=== PATIENT | female | born 1995 | race Caucasian/White ===

== ENCOUNTER 2019-05-13 01:26 | Inpatient (IN) ==
[2019-05-13] MEDS ORDERED: OXYTOCIN 30 UNITS/500 ML BAG IV PRN ×2 (02:59→03:02)
[2019-05-13] MEDS: LACTATED RINGER'S 1,000 ML IV PRN ×5 (03:05→23:10)
--- NOTE | 2019-05-13 03:09 | History & Physical Report ---
Date of Service May 13, 2019 Assessment & Plan (1) Spontaneous rupture of amniotic membranes: 23 yo at 39.2 wks, with SRPOM at term, meconium stained VSS Afebrile FHR reassuring GBS negative Discussed augmentation with pitocin with decreased risk of IAI Agrees Plan: admit, observe, monitor, augmentation with with Pitocin History of Present Illness Chief Complaint: Leaking Primary Care Provider: Jose Levy MD Patient is a 23 yo at 39.2 wks who had gush of fluid leaking at 0050 am, it has been coming and yellow No VB She has been having irregular ctxs for the last 2 days but got more closer and painful since 0130 am +FM's No Fever/ chills/ N&V/ MCGHEE Her has been complicaed by 1) Obesity 2) Smoker 3) LSGIL pap 4) Anxiety Allergies Allergy/AdvReac Type Severity Reaction Status Date / Time Penicillins Allergy Mild Rash Verified 05/13/19 02:10 Home Medications Home Medications Medication Instructions Recorded Confirmed Type vit-iron fum-folic ac 1 tab PO DAILY 05/13/19 05/13/19 History [ Vitamin] Patient History Social History Preferred Language: Kenyan Communication Ability: Effective Field Service Representative Required: No Beliefs That Will Affect Care: None marital status: Single Current Living Situation: Significant Other Other Information That Helps Us Care for You: No Feels Safe at Home: Yes Safety Concerns: Feels Safe At This Time Smoking Status: Current every day smoker Tobacco Type: cigarettes ; Cigarettes Per Day: 3-4 ; Do You Dip or Chew Tobacco: No ; Second Hand Exposure: Yes ; Tobacco Cessation Education Requested by Patient: No Hx Alcohol Use: No Hx Substance Use: No OB History SAB in 2018 [employer] History No h/o STD's, no HSV Review of Systems All systems reviewed & are unremarkable except as noted in HPI & below as per Subjective / HPI Physical Exam Constitutional: WD/WN, vitals as above well developed, well nourished and + in distress (Mild, anxious) Genitourinary: Meconium stained fluid on perineum, Nitrazine+ Cx: 1-2 cm/ 60%/ -2, vertex Results & Data Vital Signs (Past 12 Hours) Vital Signs Temp Pulse Resp BP 05/13/19 02:37 81 137/77 05/13/19 02:11 36.8 C 81 20 145/65 H 05/13/19 01:56 81 145/65 H 05/13/19 01:42 87 162/77 H 05/13/19 01:38 90 164/82 H Code Status & VTE Plan VTE Prophylaxis Plan VTE Prophylaxis will be ordered: Yes Monitoring External Monitor Categ I Tocodynamometer [place]: irregular ctxs
[2019-05-13 03:29] LABS: Hematocrit (blood only) 35.4 % (37-47); Hemoglobin 12.3 g/dL (12.0-16.0); Mean Corpuscular Volume 84.3 fL (80-100); Platelet Count 173 K/uL (130-400); RDW Coefficient of Variation 13.5 % (11.5-14.5); RDW Standard Deviation 40.8 fL (36.4-46.3); White Blood Count 9.15 K/uL (4.8-10.8)
[2019-05-13 03:30] LABS: Mean Corpuscular Hgb Conc 34.7 g/dL (32-36)
[2019-05-13] MEDS ORDERED: ePHEDrine sulfate 50 MG/ML AMP ONE (04:12)
[2019-05-13] MEDS ORDERED: BUPIVACAINE 0.25% 30 ML VIAL ONE ×2 (04:12→16:51)
[2019-05-13] MEDS ORDERED: fentaNYL 2MCG/ML ROPIV 1.25MG/ML 100 ML BAG EPI ONE (04:13)
--- NOTE | 2019-05-13 04:55 | Anesthesiology Consultation ---
Date of Service May 13, 2019 Assessment & Plan Chart Review Chart Review: Acceptable Risk for Surgery, Patient NOT seen in Pre Admission Testing and Acceptable Risk for Labor Epidural Consults Requested none ASA ASA2 Proposed Anesthesia Anesthesia Type: General and Labor Epidural Risk / Benefits Reviewed With: PT / POA / Parent / Guardian, Accepts Plan and Informed Consent Obtained History Height/Weight Height: 5 ft 6 in Weight: 107.048 kg Allergies Allergy/AdvReac Type Severity Reaction Status Date / Time Penicillins Allergy Mild Rash Verified 05/13/19 02:10 Medications Home Medications Medication Instructions Recorded Confirmed Last Taken vit-iron fum-folic ac 1 tab PO DAILY 05/13/19 05/13/19 05/12/19 20:00 [ Vitamin] Active Medications Generic Name Dose Route Start Last Admin Trade Name Freq PRN Reason Stop Dose Admin Lactated Ringer's 1,000 mls @ 150 mls/hr 05/13/19 02:59 05/13/19 03:43 Lr IV 05/15/19 02:58 150 mls/hr .Q6H40M PRN Infusion L&D Protocol Protocol NPO Date Last Intake of Fluids: 05/13/19 Time Last Intake of Fluids: 02:00 Date Last Intake of Solids: 05/12/19 Time Last Intake of Solids: 21:00 Past Medical History Medical History Anemia GERD (gastroesophageal reflux disease) Obese Tobacco abuse Exercise / Class Metabolic Activity II 4-5 Yardwork/Stairs/Walk up hill Past Anesthesia History No Hx of Anesthesia Complications and No Family Hx of Anesthesia Complications History of PONV No Hx of PONV and No Hx of Motion Sickness Social History Smoking Status: Current every day smoker tobacco type: cigarettes Smoking cigarettes per day: 3-4 Do You Dip or Chew Tobacco: No Hx Alcohol Use: No Hx Substance Use: No substance use type: does not use Physical Exam Vital Signs Last Vital Signs Temp 36.8 C 05/13/19 02:35 Pulse 87 05/13/19 04:48 Resp 20 05/13/19 02:35 BP 135/76 05/13/19 04:19 Pulse Ox 96 05/13/19 04:48 Constitutional + obese ENMT Mouth: no dentition abnormality Thyromental Distance: < 3.5 Finger Breadths Mallampati Class: II Neck normal visual inspection and trachea midline; neck extension not limited Respiratory normal respiratory effort Auscultation: lungs clear to auscultation bilaterally Cardiovascular Rate/Rhythm: regular rate and regular rhythm Heart Sounds: no murmur Musculoskeletal Spine: lumbar spine normal to inspection; normal cervical ROM Neurologic moves all extremities Motor/Sensory: no sensory deficit Psychiatric Orientation: alert and oriented x 3 Testing Laboratory Results 05/13/19 03:19
[2019-05-13] MEDS: fentaNYL citrate 100 MCG/2 ML VIAL ONE ×2 (05:04→05:23)
[2019-05-13] MEDS ORDERED: NALOXONE HCL 1 MG in SODIUM CHLORIDE 0.9% 1000ML 1,000 ML IV PRN (05:28)
[2019-05-13] MEDS ORDERED: NALBUPHINE HCL INJ 10 MG/ML AMP IV PRN (05:28)
[2019-05-13] MEDS ORDERED: NALOXONE HCL 0.4 MG/1 ML VIAL/CARP IV PRN (05:28)
[2019-05-13] MEDS ORDERED: ONDANSETRON INJ 2 MG/ML 2 ML VIAL IV PRN (05:28)
[2019-05-13] MEDS ORDERED: ePHEDrine sulfate 50 MG/ML AMP IV PRN (05:28)
[2019-05-13] MEDS ORDERED: PROMETHAZINE HCL 25 MG in SODIUM CHLORIDE 0.9% 50 ML IV PRN (05:28)
[2019-05-13] MEDS ORDERED: DiphenhydrAMINE HCL 50 MG/ML VIAL IV PRN (05:28)
[2019-05-13] MEDS: fentaNYL 2MCG/ML ROPIV 1.25MG/ML 100 ML BAG EPI PRN ×2 (14:20→20:21)
--- NOTE | 2019-05-13 15:56 | Labor Progress Brief Note ---
Date of Service May 13, 2019 Pt doing well FHR; CAT1 Ctx ; 2-4[mins Pit; 8Mu VE; 8/100/+1 Last BP of 197/74 was an error_ Nirse notified me continue to monitor Pt anticipate VD Results & Data Vital Signs (Past 12 Hours) Vital Signs Temp Pulse Resp BP Pulse Ox 05/13/19 15:49 85 191/74 H 97 05/13/19 15:48 94 H 82 L 05/13/19 15:43 78 95 05/13/19 15:38 81 95 05/13/19 15:33 75 133/68 97 05/13/19 15:30 18 05/13/19 15:28 83 98 05/13/19 15:23 89 98 05/13/19 15:18 83 124/73 98 05/13/19 15:13 91 H 99 05/13/19 15:08 79 97 05/13/19 15:04 80 134/76 05/13/19 15:03 82 100 05/13/19 15:01 36.8 C 05/13/19 15:00 18 05/13/19 14:58 82 99 05/13/19 14:53 81 94 05/13/19 14:48 77 98 05/13/19 14:47 82 117/65 05/13/19 14:43 80 99 05/13/19 14:38 88 100 05/13/19 14:33 88 127/69 100 05/13/19 14:30 18 05/13/19 14:28 78 99 05/13/19 14:23 85 98 05/13/19 14:18 80 128/63 99 05/13/19 14:13 73 97 05/13/19 14:08 74 95 05/13/19 14:03 75 131/68 98 05/13/19 14:00 18 05/13/19 13:58 84 97 05/13/19 13:53 78 97 05/13/19 13:48 83 127/69 98 05/13/19 13:43 84 98 05/13/19 13:38 93 H 98 05/13/19 13:33 90 139/85 98 05/13/19 13:30 18 05/13/19 13:28 81 99 05/13/19 13:23 82 97 05/13/19 13:18 84 97 05/13/19 13:17 76 133/67 05/13/19 13:13 81 97 05/13/19 13:08 76 97 05/13/19 13:04 80 128/67 05/13/19 13:03 82 97 05/13/19 13:01 36.7 C 05/13/19 12:58 77 99 05/13/19 12:53 88 98 05/13/19 12:48 90 147/73 H 96 05/13/19 12:43 78 96 05/13/19 12:38 83 98 05/13/19 12:33 82 130/64 99 05/13/19 12:30 18 05/13/19 12:28 72 97 05/13/19 12:23 71 97 05/13/19 12:20 77 124/66 05/13/19 12:18 78 97 05/13/19 12:13 77 97 05/13/19 12:08 78 97 05/13/19 12:03 87 134/77 97 05/13/19 12:00 18 05/13/19 11:58 74 98 05/13/19 11:53 78 97 05/13/19 11:48 76 134/65 97 05/13/19 11:43 88 98 05/13/19 11:38 80 98 05/13/19 11:33 76 140/71 98 05/13/19 11:31 36.6 C 18 05/13/19 11:28 80 98 05/13/19 11:23 84 98 05/13/19 11:18 83 142/74 H 97 05/13/19 11:13 88 98 05/13/19 11:10 85 133/69 05/13/19 11:08 83 97 05/13/19 11:03 83 98 05/13/19 10:58 85 97 05/13/19 10:53 84 98 05/13/19 10:49 129 H 189/96 H 05/13/19 10:48 120 H 98 05/13/19 10:43 88 98 05/13/19 10:38 80 97 05/13/19 10:34 83 131/72 05/13/19 10:33 79 97 05/13/19 10:31 36.9 C 05/13/19 10:30 18 05/13/19 10:28 84 97 05/13/19 10:23 78 96 05/13/19 10:18 77 97 05/13/19 10:17 83 132/80 05/13/19 10:13 86 98 05/13/19 10:08 99 H 94 05/13/19 10:03 105 H 98 05/13/19 10:00 18 05/13/19 09:58 93 H 96 05/13/19 09:53 88 94 05/13/19 09:48 90 121/69 95 05/13/19 09:43 98 H 98 05/13/19 09:38 93 H 96 05/13/19 09:33 87 118/53 L 99 05/13/19 09:30 18 05/13/19 09:28 85 99 05/13/19 09:23 86 99 05/13/19 09:18 86 102/57 L 98 05/13/19 09:13 86 99 05/13/19 09:08 86 100 05/13/19 09:04 86 113/56 L 05/13/19 09:03 90 97 05/13/19 09:00 18 05/13/19 08:58 88 94 05/13/19 08:53 86 93 05/13/19 08:48 85 92 05/13/19 08:47 81 110/59 L 05/13/19 08:43 81 94 05/13/19 08:38 84 94 05/13/19 08:33 85 95 05/13/19 08:32 78 112/59 L 05/13/19 08:30 18 05/13/19 08:28 78 93 05/13/19 08:23 79 93 05/13/19 08:18 78 109/59 L 96 05/13/19 08:13 90 96 05/13/19 08:08 85 96 05/13/19 08:03 81 95 05/13/19 08:00 18 05/13/19 07:58 85 96 05/13/19 07:53 85 96 05/13/19 07:49 139/80 05/13/19 07:48 88 97 05/13/19 07:43 82 98 05/13/19 07:39 82 132/70 05/13/19 07:38 79 94 05/13/19 07:35 87 86 L 05/13/19 07:33 87 91 05/13/19 07:28 86 96 05/13/19 07:23 103 H 90 05/13/19 07:21 102 H 88 L 05/13/19 07:18 103 H 97 05/13/19 07:15 36.7 C 104 H 18 92 05/13/19 07:13 80 96 05/13/19 07:08 87 98 05/13/19 07:04 81 114/64 05/13/19 07:03 83 98 05/13/19 07:00 16 05/13/19 06:58 83 97 05/13/19 06:53 86 97 05/13/19 06:48 79 106/55 L 96 05/13/19 06:45 16 05/13/19 06:43 80 95 05/13/19 06:38 80 96 05/13/19 06:33 80 129/72 96 05/13/19 06:30 18 05/13/19 06:28 80 95 05/13/19 06:23 81 96 05/13/19 06:18 72 96 05/13/19 06:17 75 126/64 05/13/19 06:15 18 05/13/19 06:13 85 97 05/13/19 06:08 92 H 97 05/13/19 06:03 98 H 99 05/13/19 06:02 85 118/64 05/13/19 06:00 18 05/13/19 05:58 90 97 05/13/19 05:53 94 H 98 05/13/19 05:51 93 H 140/77 05/13/19 05:48 90 98 05/13/19 05:46 16 05/13/19 05:45 104 H 125/68 05/13/19 05:43 108 H 98 05/13/19 05:40 93 H 118/92 05/13/19 05:38 89 97 05/13/19 05:33 81 96 05/13/19 05:30 37.0 C 16 05/13/19 05:28 85 117/58 L 96 05/13/19 05:26 83 132/64 05/13/19 05:24 88 130/65 05/13/19 05:23 85 95 05/13/19 05:22 91 H 127/66 05/13/19 05:20 88 133/66 05/13/19 05:18 85 107/63 96 05/13/19 05:15 81 131/69 05/13/19 05:13 81 95 05/13/19 05:12 81 94 05/13/19 05:08 94 H 97 05/13/19 05:03 96 H 96 05/13/19 04:58 91 H 95 05/13/19 04:53 92 H 97 05/13/19 04:48 87 96 05/13/19 04:20 36.7 C 05/13/19 04:19 77 135/76
[2019-05-13] MEDS ORDERED: fentaNYL citrate 100 MCG/2 ML VIAL ONE ×2 (16:52→19:58)
--- NOTE | 2019-05-13 20:01 | Labor Progress Brief Note ---
Date of Service May 13, 2019 Pt doing well FHR; CAT1 Ctx 2-4 mins VE; station Station unchanged Pit; 8Mu Epidural analgesia rebolused Results & Data Vital Signs (Past 12 Hours) Vital Signs Temp Pulse Resp BP Pulse Ox 05/13/19 19:54 92 H 98 05/13/19 19:49 105 H 94 05/13/19 19:47 97 H 86 L 05/13/19 19:44 97 H 97 05/13/19 19:39 94 H 96 05/13/19 19:34 107 H 97 05/13/19 19:32 93 H 120/60 05/13/19 19:29 90 98 05/13/19 19:24 97 H 94 05/13/19 19:19 98 H 131/69 97 05/13/19 19:14 92 H 99 05/13/19 19:10 37 C 16 05/13/19 19:09 96 H 98 05/13/19 19:04 81 97 05/13/19 19:03 83 127/65 05/13/19 19:00 18 05/13/19 18:59 73 97 05/13/19 18:54 76 97 05/13/19 18:49 78 124/64 97 05/13/19 18:44 74 98 05/13/19 18:39 71 96 05/13/19 18:34 76 97 05/13/19 18:33 69 131/64 05/13/19 18:30 18 05/13/19 18:29 78 96 05/13/19 18:24 74 96 05/13/19 18:19 77 96 05/13/19 18:18 75 128/70 05/13/19 18:14 70 97 05/13/19 18:09 72 97 05/13/19 18:04 72 97 05/13/19 18:03 69 125/67 05/13/19 18:00 18 05/13/19 17:59 73 97 05/13/19 17:54 70 96 05/13/19 17:49 71 97 05/13/19 17:47 75 128/71 05/13/19 17:45 76 131/68 05/13/19 17:44 82 98 05/13/19 17:39 37.2 C 89 99 05/13/19 17:38 80 143/66 H 05/13/19 17:34 85 98 05/13/19 17:33 84 147/72 H 05/13/19 17:29 86 98 05/13/19 17:24 86 98 05/13/19 17:19 87 98 05/13/19 17:18 86 127/58 L 05/13/19 17:14 86 98 05/13/19 17:09 84 98 05/13/19 17:04 91 H 99 05/13/19 17:00 37.2 C 18 05/13/19 16:59 77 97 05/13/19 16:54 91 H 98 05/13/19 16:49 92 H 97 05/13/19 16:44 88 99 05/13/19 16:39 81 98 05/13/19 16:34 84 134/85 99 05/13/19 16:32 84 134/76 05/13/19 16:30 18 05/13/19 16:29 89 98 05/13/19 16:24 73 96 05/13/19 16:19 75 98 05/13/19 16:18 76 133/76 05/13/19 16:14 84 98 05/13/19 16:09 75 98 05/13/19 16:04 85 138/77 99 05/13/19 16:00 18 05/13/19 15:59 81 97 05/13/19 15:56 84 149/66 H 05/13/19 15:54 81 97 05/13/19 15:49 85 191/74 H 97 05/13/19 15:48 94 H 82 L 05/13/19 15:43 78 95 05/13/19 15:38 81 95 05/13/19 15:33 75 133/68 97 05/13/19 15:30 18 05/13/19 15:28 83 98 05/13/19 15:23 89 98 05/13/19 15:18 83 124/73 98 05/13/19 15:13 91 H 99 05/13/19 15:08 79 97 05/13/19 15:04 80 134/76 05/13/19 15:03 82 100 05/13/19 15:01 36.8 C 05/13/19 15:00 18 05/13/19 14:58 82 99 05/13/19 14:53 81 94 05/13/19 14:48 77 98 05/13/19 14:47 82 117/65 05/13/19 14:43 80 99 05/13/19 14:38 88 100 05/13/19 14:33 88 127/69 100 05/13/19 14:30 18 05/13/19 14:28 78 99 05/13/19 14:23 85 98 05/13/19 14:18 80 128/63 99 05/13/19 14:13 73 97 05/13/19 14:08 74 95 05/13/19 14:03 75 131/68 98 05/13/19 14:00 18 05/13/19 13:58 84 97 05/13/19 13:53 78 97 05/13/19 13:48 83 127/69 98 05/13/19 13:43 84 98 05/13/19 13:38 93 H 98 05/13/19 13:33 90 139/85 98 05/13/19 13:30 18 05/13/19 13:28 81 99 05/13/19 13:23 82 97 05/13/19 13:18 84 97 05/13/19 13:17 76 133/67 05/13/19 13:13 81 97 05/13/19 13:08 76 97 05/13/19 13:04 80 128/67 05/13/19 13:03 82 97 05/13/19 13:01 36.7 C 05/13/19 12:58 77 99 05/13/19 12:53 88 98 05/13/19 12:48 90 147/73 H 96 05/13/19 12:43 78 96 05/13/19 12:38 83 98 05/13/19 12:33 82 130/64 99 05/13/19 12:30 18 05/13/19 12:28 72 97 05/13/19 12:23 71 97 05/13/19 12:20 77 124/66 05/13/19 12:18 78 97 05/13/19 12:13 77 97 05/13/19 12:08 78 97 05/13/19 12:03 87 134/77 97 05/13/19 12:00 18 05/13/19 11:58 74 98 05/13/19 11:53 78 97 05/13/19 11:48 76 134/65 97 05/13/19 11:43 88 98 05/13/19 11:38 80 98 05/13/19 11:33 76 140/71 98 05/13/19 11:31 36.6 C 18 05/13/19 11:28 80 98 05/13/19 11:23 84 98 05/13/19 11:18 83 142/74 H 97 05/13/19 11:13 88 98 05/13/19 11:10 85 133/69 05/13/19 11:08 83 97 05/13/19 11:03 83 98 05/13/19 10:58 85 97 05/13/19 10:53 84 98 05/13/19 10:49 129 H 189/96 H 05/13/19 10:48 120 H 98 05/13/19 10:43 88 98 05/13/19 10:38 80 97 05/13/19 10:34 83 131/72 05/13/19 10:33 79 97 05/13/19 10:31 36.9 C 05/13/19 10:30 18 05/13/19 10:28 84 97 05/13/19 10:23 78 96 05/13/19 10:18 77 97 05/13/19 10:17 83 132/80 05/13/19 10:13 86 98 05/13/19 10:08 99 H 94 05/13/19 10:03 105 H 98 05/13/19 10:00 18 05/13/19 09:58 93 H 96 05/13/19 09:53 88 94 05/13/19 09:48 90 121/69 95 05/13/19 09:43 98 H 98 05/13/19 09:38 93 H 96 05/13/19 09:33 87 118/53 L 99 05/13/19 09:30 18 05/13/19 09:28 85 99 05/13/19 09:23 86 99 05/13/19 09:18 86 102/57 L 98 05/13/19 09:13 86 99 05/13/19 09:08 86 100 05/13/19 09:04 86 113/56 L 05/13/19 09:03 90 97 05/13/19 09:00 18 05/13/19 08:58 88 94 05/13/19 08:53 86 93 05/13/19 08:48 85 92 05/13/19 08:47 81 110/59 L 05/13/19 08:43 81 94 05/13/19 08:38 84 94 05/13/19 08:33 85 95 05/13/19 08:32 78 112/59 L 05/13/19 08:30 18 05/13/19 08:28 78 93 05/13/19 08:23 79 93 05/13/19 08:18 78 109/59 L 96 05/13/19 08:13 90 96 05/13/19 08:08 85 96 05/13/19 08:03 81 95 05/13/19 08:00 18
--- NOTE | 2019-05-13 20:09 | Anesthesiology Progress Note ---
Date of Service May 13, 2019 At 2003,pt epidural catheter was bolused w/ 12 ml of 0.17% bupivacaine + 100 mcgs fentanyl.Neg. aspiration. vital signs are stable. Pt c/o pain is 8/10. Physical Exam Vital Signs: Last Vital Signs Temp 37 C 05/13/19 19:10 Pulse 88 05/13/19 20:04 Resp 16 05/13/19 19:10 BP 131/70 05/13/19 20:03 Pulse Ox 98 05/13/19 20:04 Results & Data Medications Administered Lactated Ringer's (Lr) 1,000 mls @ 150 mls/hr IV .Q6H40M PRN; Protocol PRN Reason: L&D Protocol Stop: 05/15/19 02:58 Last Admin: 05/13/19 17:56 Dose: 150 mls/hr Documented by: [id number] Infusion: 05/13/19 17:56 Dose: 0 mls/hr Documented by: [id number] Infusion: 05/13/19 17:39 Dose: 999 mls/hr Documented by: [id number] Admin: 05/13/19 13:38 Dose: 150 mls/hr Documented by: [id number] Infusion: 05/13/19 13:37 Dose: 0 mls/hr Documented by: [id number] Admin: 05/13/19 06:56 Dose: 150 mls/hr Documented by: [id number] Infusion: 05/13/19 06:10 Dose: 150 mls/hr Documented by: [id number] Infusion: 05/13/19 03:43 Dose: 150 mls/hr Documented by: [id number] Admin: 05/13/19 03:05 Dose: 999 mls/hr Documented by: [id number] Oxytocin (Pitocin) 30 units in 500 mls @ 8 mls/hr IV .Q24H PRN; Protocol PRN Reason: Labor Induction/Augmentation Stop: 05/15/19 03:01 Last Titration: 05/13/19 19:06 Dose: 0.48 units/hr, 8 mls/hr Documented by: [id number] Titration: 05/13/19 12:15 Dose: 0.48 units/hr, 8 mls/hr Documented by: [id number] Titration: 05/13/19 08:38 Dose: 0.36 units/hr, 6 mls/hr Documented by: [id number] Titration: 05/13/19 08:02 Dose: 0.24 units/hr, 4 mls/hr Documented by: [id number] Admin: 05/13/19 07:28 Dose: 0.12 units/hr, 2 mls/hr Documented by: [id number] Cosigned by: [id number] Ropivacaine (Epidural (L&D)) 100 ml EPI PRN PRN; Protocol PRN Reason: Pain R/T Labor Stop: 05/14/19 05:27 Last Admin: 05/13/19 14:20 Dose: 100 ml Documented by: [id number] Cosigned by: [id number]
--- NOTE | 2019-05-13 21:38 | Labor Progress Brief Note ---
Date of Service May 13, 2019 Pt more comfortable after epidural analgesia bolus FHR; CAT1 Ctx 2-5mins Pit; 8MU VE; Unchanged IUPC and scalp placed continue with Pitocin augmentation Results & Data Vital Signs (Past 12 Hours) Vital Signs Temp Pulse Resp BP Pulse Ox 05/13/19 21:33 85 139/72 05/13/19 21:30 82 93 05/13/19 21:25 89 96 05/13/19 21:20 89 95 05/13/19 21:18 76 141/71 H 05/13/19 21:15 87 96 05/13/19 21:10 72 94 05/13/19 21:05 71 94 05/13/19 21:03 72 132/69 05/13/19 21:00 67 95 05/13/19 20:55 75 97 05/13/19 20:49 73 90 05/13/19 20:47 73 130/68 88 L 05/13/19 20:44 82 88 L 05/13/19 20:42 80 88 L 05/13/19 20:39 72 94 05/13/19 20:34 72 95 05/13/19 20:32 80 139/76 05/13/19 20:29 85 94 05/13/19 20:24 79 100 05/13/19 20:19 84 95 05/13/19 20:18 93 H 134/75 05/13/19 20:14 83 96 05/13/19 20:09 79 95 05/13/19 20:04 88 98 05/13/19 20:03 82 131/70 05/13/19 19:59 85 95 05/13/19 19:54 92 H 98 05/13/19 19:49 105 H 94 05/13/19 19:47 97 H 86 L 05/13/19 19:44 97 H 97 05/13/19 19:39 94 H 96 05/13/19 19:34 107 H 97 05/13/19 19:32 93 H 120/60 05/13/19 19:29 90 98 05/13/19 19:24 97 H 94 05/13/19 19:19 98 H 131/69 97 05/13/19 19:14 92 H 99 05/13/19 19:10 37 C 16 05/13/19 19:09 96 H 98 05/13/19 19:04 81 97 05/13/19 19:03 83 127/65 05/13/19 19:00 18 05/13/19 18:59 73 97 05/13/19 18:54 76 97 05/13/19 18:49 78 124/64 97 05/13/19 18:44 74 98 05/13/19 18:39 71 96 05/13/19 18:34 76 97 05/13/19 18:33 69 131/64 05/13/19 18:30 18 05/13/19 18:29 78 96 05/13/19 18:24 74 96 05/13/19 18:19 77 96 05/13/19 18:18 75 128/70 05/13/19 18:14 70 97 05/13/19 18:09 72 97 05/13/19 18:04 72 97 05/13/19 18:03 69 125/67 05/13/19 18:00 18 05/13/19 17:59 73 97 05/13/19 17:54 70 96 05/13/19 17:49 71 97 05/13/19 17:47 75 128/71 05/13/19 17:45 76 131/68 05/13/19 17:44 82 98 05/13/19 17:39 37.2 C 89 99 05/13/19 17:38 80 143/66 H 05/13/19 17:34 85 98 05/13/19 17:33 84 147/72 H 05/13/19 17:29 86 98 05/13/19 17:24 86 98 05/13/19 17:19 87 98 05/13/19 17:18 86 127/58 L 05/13/19 17:14 86 98 05/13/19 17:09 84 98 05/13/19 17:04 91 H 99 05/13/19 17:00 37.2 C 18 05/13/19 16:59 77 97 05/13/19 16:54 91 H 98 05/13/19 16:49 92 H 97 05/13/19 16:44 88 99 05/13/19 16:39 81 98 05/13/19 16:34 84 134/85 99 05/13/19 16:32 84 134/76 05/13/19 16:30 18 05/13/19 16:29 89 98 05/13/19 16:24 73 96 05/13/19 16:19 75 98 05/13/19 16:18 76 133/76 05/13/19 16:14 84 98 05/13/19 16:09 75 98 05/13/19 16:04 85 138/77 99 05/13/19 16:00 18 05/13/19 15:59 81 97 05/13/19 15:56 84 149/66 H 05/13/19 15:54 81 97 05/13/19 15:49 85 191/74 H 97 05/13/19 15:48 94 H 82 L 05/13/19 15:43 78 95 05/13/19 15:38 81 95 05/13/19 15:33 75 133/68 97 05/13/19 15:30 18 05/13/19 15:28 83 98 05/13/19 15:23 89 98 05/13/19 15:18 83 124/73 98 05/13/19 15:13 91 H 99 05/13/19 15:08 79 97 05/13/19 15:04 80 134/76 05/13/19 15:03 82 100 05/13/19 15:01 36.8 C 05/13/19 15:00 18 05/13/19 14:58 82 99 05/13/19 14:53 81 94 05/13/19 14:48 77 98 05/13/19 14:47 82 117/65 05/13/19 14:43 80 99 05/13/19 14:38 88 100 05/13/19 14:33 88 127/69 100 05/13/19 14:30 18 05/13/19 14:28 78 99 05/13/19 14:23 85 98 05/13/19 14:18 80 128/63 99 05/13/19 14:13 73 97 05/13/19 14:08 74 95 05/13/19 14:03 75 131/68 98 05/13/19 14:00 18 05/13/19 13:58 84 97 05/13/19 13:53 78 97 05/13/19 13:48 83 127/69 98 05/13/19 13:43 84 98 05/13/19 13:38 93 H 98 05/13/19 13:33 90 139/85 98 05/13/19 13:30 18 05/13/19 13:28 81 99 05/13/19 13:23 82 97 05/13/19 13:18 84 97 05/13/19 13:17 76 133/67 05/13/19 13:13 81 97 05/13/19 13:08 76 97 05/13/19 13:04 80 128/67 05/13/19 13:03 82 97 05/13/19 13:01 36.7 C 05/13/19 12:58 77 99 05/13/19 12:53 88 98 05/13/19 12:48 90 147/73 H 96 05/13/19 12:43 78 96 05/13/19 12:38 83 98 05/13/19 12:33 82 130/64 99 05/13/19 12:30 18 05/13/19 12:28 72 97 05/13/19 12:23 71 97 05/13/19 12:20 77 124/66 05/13/19 12:18 78 97 05/13/19 12:13 77 97 05/13/19 12:08 78 97 05/13/19 12:03 87 134/77 97 05/13/19 12:00 18 05/13/19 11:58 74 98 05/13/19 11:53 78 97 05/13/19 11:48 76 134/65 97 05/13/19 11:43 88 98 05/13/19 11:38 80 98 05/13/19 11:33 76 140/71 98 05/13/19 11:31 36.6 C 18 05/13/19 11:28 80 98 05/13/19 11:23 84 98 05/13/19 11:18 83 142/74 H 97 05/13/19 11:13 88 98 05/13/19 11:10 85 133/69 05/13/19 11:08 83 97 05/13/19 11:03 83 98 05/13/19 10:58 85 97 05/13/19 10:53 84 98 05/13/19 10:49 129 H 189/96 H 05/13/19 10:48 120 H 98 05/13/19 10:43 88 98 05/13/19 10:38 80 97 05/13/19 10:34 83 131/72 05/13/19 10:33 79 97 05/13/19 10:31 36.9 C 05/13/19 10:30 18 05/13/19 10:28 84 97 05/13/19 10:23 78 96 05/13/19 10:18 77 97 05/13/19 10:17 83 132/80 05/13/19 10:13 86 98 05/13/19 10:08 99 H 94 05/13/19 10:03 105 H 98 05/13/19 10:00 18 05/13/19 09:58 93 H 96 05/13/19 09:53 88 94 05/13/19 09:48 90 121/69 95 05/13/19 09:43 98 H 98 05/13/19 09:38 93 H 96
[2019-05-14] MEDS: fentaNYL 2MCG/ML ROPIV 1.25MG/ML 100 ML BAG EPI PRN (01:10)
[2019-05-14] MEDS ORDERED: METHYLERGONOVINE MALEATE 0.2 MG/ML AMP ONE (02:05)
[2019-05-14 02:29] LABS: Base Excess Cord Arterial Bld -5.4 mEq/L (-9-1.8); CO2 Cord Arterial Blood 37 mmHg (39.1-73.5); HCO3 Cord Arterial Blood 20 mmol/L (19.7-28.5); Oxygen Sat Cord Arterial Blood 71.3 % (<60); PO2 Cord Arterial Blood 34.5 % (4.1-31.7); pH Cord Arterial Blood 7.34 (7.1-7.38)
[2019-05-14] MEDS ORDERED: BISACODYL 10 MG SUPP PR PRN (02:29)
[2019-05-14] MEDS ORDERED: ACETAMINOPHEN 325 MG TAB PO PRN (02:29)
[2019-05-14] MEDS ORDERED: DIPHTHERIA/TETANUS/PERTUSSIS 0.5 ML SYR/VIAL IM ONE (02:29)
[2019-05-14] MEDS ORDERED: BENZOCAINE 20% AER SPR 82.5 GM CAN EXT PRN (02:29)
[2019-05-14] MEDS ORDERED: OXYTOCIN 30 UNITS/500 ML BAG IV PRN (02:29)
[2019-05-14] MEDS ORDERED: miSOPROStol 200 MCG TAB PR ONE (02:29)
[2019-05-14] MEDS ORDERED: HYDROCORTISONE ACETATE 25 MG SUPP PR PRN (02:29)
[2019-05-14] MEDS ORDERED: SUPERCREAM 0.870% 15 GM JAR EXT PRN (02:29)
[2019-05-14 02:30] LABS: Base Excess Cord Venous Blood -5.3 mEq/L (-7.7-1.9); Cord Venous Blood HCO3 20 mmol/L (18.4-26.8); Cord Venous Blood PCO2 39 mmHg (30.4-57.2); Cord Venous Blood PO2 35 mmHg (14.1-43.3); Cord Venous Blood pH 7.33 (7.20-7.44)
[2019-05-14] MEDS: IBUPROFEN 600 MG TAB PO PRN ×4 (06:40→20:33)
[2019-05-14] MEDS: DOCUSATE SODIUM 100 MG CAP PO SCH ×2 (08:02→21:24)
[2019-05-14] MEDS: PRENATAL VITAMIN 1 TAB PO SCH (08:02)
[2019-05-14] MEDS: FERROUS SULFATE 325 MG TAB PO SCH (08:02)
--- NOTE | 2019-05-14 10:51 | Anesthesia Procedure Note ---
Date of Service May 14, 2019 Anesthesia Post Epidural Note Vital Signs Vital Signs: Temp Pulse Resp BP Pulse Ox 36.8 C 72 18 133/82 98 05/14/19 07:30 05/14/19 07:30 05/14/19 07:30 05/14/19 07:30 05/14/19 07:30 Pain Intensity Bilateral Abdomen: Pain Intensity: 2 Notes Mental Status: alert / awake / arousable Nausea / Vomiting: adequately controlled Pain: adequately controlled Airway Patency, RR, SpO2: stable & adequate BP & HR: stable & adequate Hydration State: stable & adequate Neuraxial Anesthesia: was administered and sensory block is resolving Anesthetic Complications: no major complications apparent Epidural: Removed without complications and With tip intact
[2019-05-14] MEDS ORDERED: ACETAMINOPHEN W/CODEINE #3 1 TAB PO PRN (21:48)
[2019-05-15] MEDS: IBUPROFEN 600 MG TAB PO PRN ×4 (04:47→20:39)
[2019-05-15 06:52] LABS: Hematocrit (blood only) 31.6 % (37-47); Hemoglobin 10.8 g/dL (12.0-16.0); Mean Corpuscular Hgb Conc 34.2 g/dL (32-36); Mean Corpuscular Volume 85.2 fL (80-100); Mean Platelet Volume 10.8 fL (7.4-10.4); Platelet Count 158 K/uL (130-400); RDW Coefficient of Variation 13.4 % (11.5-14.5); RDW Standard Deviation 41.5 fL (36.4-46.3); Red Blood Count 3.71 M/uL (4.2-5.4); White Blood Count 11.81 K/uL (4.8-10.8)
--- NOTE | 2019-05-15 07:56 | Obstetrical Progress Note ---
Date of Service May 15, 2019 Subjective doing well Physical Exam Constitutional: WD/WN, vitals as above comfortable abdomen soft and non- tender no edema neg Naye's tent d/c in AM Results & Data Vital Signs (Past 12 Hours) Vital Signs Temp Pulse Resp BP Pulse Ox 05/15/19 04:35 80 145/95 H 05/14/19 23:35 36.8 C 78 20 142/90 H 99 Laboratory Results 05/13/19 05/14/19 05/14/19 03:19 01:59 01:59 WBC 9.15 RBC 4.20 Hgb 12.3 Hct 35.4 L MCV 84.3 MCH 29.3 MCHC 34.7 RDW Std Deviation 40.8 RDW Coeff of Marianna 13.5 Plt Count 173 MPV 11.0 H Cord ABG pH 7.34 Cord ABG pCO2 37 L Cord ABG pO2 34.5 H Cord ABG HCO3 20 Cord ABG Base Excess -5.4 Cord ABG O2 Sat 71.3 H Cord VBG pH 7.33 Cord VBG pCO2 39 Cord VBG pO2 35 Cord VBG HCO3 20 Cord VBG Base Excess -5.3 Cord VBG O2 Sat 71.0 H Blood Gas Comments MCCAIN MCCAIN 05/15/19 06:35 WBC 11.81 H RBC 3.71 L Hgb 10.8 L Hct 31.6 L MCV 85.2 MCH 29.1 MCHC 34.2 RDW Std Deviation 41.5 RDW Coeff of Marianna 13.4 Plt Count 158 MPV 10.8 H Cord ABG pH Cord ABG pCO2 Cord ABG pO2 Cord ABG HCO3 Cord ABG Base Excess Cord ABG O2 Sat Cord VBG pH Cord VBG pCO2 Cord VBG pO2 Cord VBG HCO3 Cord VBG Base Excess Cord VBG O2 Sat Blood Gas Comments
--- NOTE | 2019-05-15 08:09 | Delivery Summary ---
DATE OF OPERATION: 05/14/2019 The patient delivered a live infant female in occiput anterior presentation. There was meconium. also had a body cord. Infant was delivered and placed on mother's abdomen. Cord was clamped and cut and handed over to the pediatric team. Baby's weight and Apgars in the pediatric record. Cord gas and cord blood was obtained. Placenta was spontaneously delivered. Placenta appeared to be meconium stained as well. A second-degree midline episiotomy was performed to help with infant delivery. This repair was repaired in layers with 2-0 Vicryl. Rectal exam post repair showed good sphincter tone. There were no sutures palpated in the rectum. Estimated blood loss was 600 mL. Baby and mother are doing well and stable in recovery. All instruments were removed from the vagina and accounted for x2 including retractors, needles and sponges. I attest to the content of the Intraoperative Record and any orders documented therein. Any exception s are noted below.
[2019-05-15] MEDS: FERROUS SULFATE 325 MG TAB PO SCH (08:27)
[2019-05-15] MEDS: DOCUSATE SODIUM 100 MG CAP PO SCH ×3 (08:27→20:40)
[2019-05-15] MEDS: PRENATAL VITAMIN 1 TAB PO SCH (08:27)
[2019-05-15] MEDS ORDERED: NICOTINE 14 MG/24 HR PATCH TD SCH (17:00)
--- NOTE | 2019-05-15 17:31 | Psychiatric Consultation ---
Date of Consultation May 15, 2019 Impression / Recommendations Impression As the patient herself put it, "I think it is hormones." The patient evidently has had some emotional lability within the context of having given recently. She tells me that her emotions have been a mixture of robert, relief, and an overreaction when her boyfriend left for the day to go home and she felt temporarily "a little sad" and lonely. She adds that after talking to someone she felt much better. She denies any previous psychiatric history. There is no evidence that she is delusional and, more specifically, there is no evidence that she has in any way incorporated the baby into a delusional system. She also demonstrates a fairly bright affect, and says that although she knows that she has been a bit emotional, she does not endorse feeling significantly depressed. She is able to talk about having the concerns that she feels most name of his would have, regarding childcare and meeting the needs of a baby pot, but she also says that she feels prepared and delighted by motherhood. I do not feel the patient meets criteria for depression at this time, and I see no reason why the patient should not be released to home tomorrow as planned. Risk Factors Assessment Male: No : Yes Do You Have Access To A Gun?: No Health Problems: No Mental Health Diagnoses: No Substance Use Disorders: No Previous Attempt: No Family History of Suicide: No Previous Psychiatric Hospitalization: No Hopelessness: No Smoker: Yes Protective Factors Assessment Buddhist Beliefs: Yes : No (Engaged to be . Stable relationship with her fianc.) Responsible for Young Children: Yes Stable Relationships: Yes Supportive Family: Yes Good Rapport with Provider: Yes Absence of Any Risk Factors Above: No CPT Code 88468 Psych History Chief Complaint "I was just kind of emotional. Hormones.." History of Present Illness Patient is a 23 yo at 39.2 wks who had gush of fluid leaking at 0050 am, it has been coming and yellow No VB She has been having irregular ctxs for the last 2 days but got more closer and painful since 0130 am +FM's No Fever/ chills/ N&V/ MCGHEE Her has been complicaed by 1) Obesity 2) Smoker 3) LSGIL pap 4) Anxiety The patient has given to a healthy baby girl. I was asked to see the patient because she has been somewhat emotional. For example, she was tearful when her fianc left to go home to prepare for the patient's return with their baby. She also acknowledges that she has been periodically tearful while looking at her babyhis circumstance that she describes as "tears of robert" because the baby is "so beautiful and healthy and I am so relieved that she is finally here!" The patient reports that she has no history of depression, and has no history of any contact with the psychiatric community. She has no suicidal thoughts, no homicidal thoughts, no thoughts of causing harm to the baby, and reports that she has no concerns about the baby, other than "probably what every new mother worries about." This is the patient's first child. She notes that she had used the word "depressed" before but says that a better word would be "emotional," within the context of the robert of having given , as well as the stress of being in the hospital and an overwhelming sense of relief that the baby is healthy and, she put it, "beautiful." Past Psychiatric History Do You Have Access To A Gun?: No Allergies Allergy/AdvReac Type Severity Reaction Status Date / Time Penicillins Allergy Mild Rash Verified 05/13/19 02:10 Home Medications Home Medications Medication Instructions Recorded Confirmed Type vit-iron fum-folic ac 1 tab PO DAILY 05/13/19 05/13/19 History [ Vitamin] Personal History Beliefs That Will Affect Care: None Patient History Medical History Anemia Anxiety and depression no meds GERD (gastroesophageal reflux disease) Obese Pyloric stenosis surgery at 4 weeks of age Scoliosis Tobacco abuse [place] teeth extracted Social History Preferred Language: Cuban Communication Ability: Effective Tmr Teacher Required: No Beliefs That Will Affect Care: None marital status: Single Current Living Situation: Significant Other Other Information That Helps Us Care for You: No Feels Safe at Home: Yes Safety Concerns: Feels Safe At This Time Smoking Status: Current every day smoker Tobacco Type: cigarettes ; Cigarettes Per Day: 3-4 ; Do You Dip or Chew Tobacco: No ; Second Hand Exposure: Yes ; Tobacco Cessation Education Requested by Patient: No Hx Alcohol Use: No Hx Substance Use: No Physical Exam Psychiatric: Orientation: alert In hospital gown. She was pleasant and Eye Contact: good eye contact Motor Behavior: steady gait and station Speech: normal rate/rhythm/volume of speech Affect: euthymic affect The patient smiled appropriately on several occasions during the interview. She is engaging and fairly animated. "May be a little overly emotional. I think it is hormones" Thought Process: linear/logical thought process Thought Content: reality based without delusions; no delusions The patient voices no suspicions or unusual concerns about her daughter. She proudly shows me the baby and beams happily when i comment upon how beautiful her baby is. Suicidal Thoughts: denies suicidal thoughts Homicidal Thoughts: denies homicidal thoughts Hallucinations: no auditory hallucinations Cognition: recent memory grossly intact, remote memory grossly intact, attention grossly intact and language grossly intact Estimated Intelligence: average estimated intelligence Insight: good insight Judgement: good judgement Vital Signs (Past 24 Hours): Last Vital Signs Temp 36.5 C 05/15/19 15:45 Pulse 78 05/15/19 15:45 Resp 18 05/15/19 15:45 BP 135/81 05/15/19 15:45 Pulse Ox 98 05/15/19 15:45 Results & Data Medications Administered Acetaminophen/Codeine Phosphate (Tylenol W/Codeine #3) 2 tab PO Q4H PRN PRN Reason: Pain Stop: 06/13/19 21:47 Last Admin: 05/14/19 22:21 Dose: 2 tab Documented by: [id number] Benzocaine (Dermoplast Pain Relieving Early) 1 appln EXT PRN PRN PRN Reason: Perineal Discomfort Stop: 06/13/19 02:28 Last Admin: 05/14/19 08:06 Dose: 1 appln Documented by: [id number] Docusate Sodium (Colace) 100 mg PO DAILY@08, [facility] Stop: 06/13/19 07:59 Last Admin: 05/15/19 08:31 Dose: 100 mg Documented by: [id number] Admin: 05/14/19 21:24 Dose: 100 mg Documented by: [id number] Admin: 05/14/19 08:02 Dose: 100 mg Documented by: [id number] Ferrous Sulfate (Feosol) 325 mg PO DAILY@08 [place] Stop: 06/13/19 07:59 Last Admin: 05/15/19 08:27 Dose: 325 mg Documented by: [id number] Admin: 05/14/19 08:02 Dose: 325 mg Documented by: [id number] Ibuprofen (Motrin) 600 mg PO Q4H PRN PRN Reason: Pain/MCGHEE/Cramping/Fever Stop: 06/13/19 02:28 Last Admin: 05/15/19 12:55 Dose: 600 mg Documented by: [id number] Admin: 05/15/19 08:26 Dose: 600 mg Documented by: [id number] Admin: 05/15/19 04:47 Dose: 600 mg Documented by: [id number] Admin: 05/14/19 20:33 Dose: 600 mg Documented by: [id number] Admin: 05/14/19 16:41 Dose: 600 mg Documented by: [id number] Admin: 05/14/19 11:15 Dose: 600 mg Documented by: [id number] Admin: 05/14/19 06:40 Dose: 600 mg Documented by: [id number] Prenat Multivit/[place]/Iron/Folic Ac ( Vitamin) 1 tab PO DAILY@08 [place] Stop: 06/13/19 07:59 Last Admin: 05/15/19 08:27 Dose: 1 tab Documented by: [id number] Admin: 05/14/19 08:02 Dose: 1 tab Documented by: [id number]
[2019-05-15] MEDS ORDERED: BISACODYL 5 MG TABEC PO SCH (20:00)
[2019-05-16 06:32] LABS: Hematocrit (blood only) 30.9 % (37-47); Hemoglobin 10.5 g/dL (12.0-16.0)
[2019-05-16] MEDS: IBUPROFEN 600 MG TAB PO PRN (08:52)
[2019-05-16] MEDS: DOCUSATE SODIUM 100 MG CAP PO SCH (08:53)
[2019-05-16] MEDS: FERROUS SULFATE 325 MG TAB PO SCH (08:53)
[2019-05-16] MEDS: PRENATAL VITAMIN 1 TAB PO SCH (08:53)
--- NOTE | 2019-05-16 10:45 | Obstetrical Progress Note ---
Date of Service May 16, 2019 Assessment & Plan (1) Normal delivery: PPD #2 pt doing well HTN; No headache, SOB, visual changes Nml Plt. COMP pending will disch home if nml CMP. and f/u in office for BP check Results & Data Vital Signs (Past 12 Hours) Vital Signs Temp Pulse Resp BP Pulse Ox 05/16/19 07:45 36.5 C 76 18 142/84 H 98 05/15/19 23:15 36.6 C 61 20 144/82 H
[2019-05-16 10:46] LABS: Albumin Level 2.6 gm/dl (3.4-5.0); BUN Creatinine Ratio 14.7 (10-20); Calcium 8.6 mg/dl (8.5-10.1); Creatinine Clr Calc Pharmacy 126.7 ml/min; Est GFR (Non-African American) 96.6
[2019-05-16 10:49] LABS: Albumin Globulin Ratio 0.7 (0.9-2); Bilirubin,Total 0.2 mg/dl (0.2-1); Globulin 3.9 gm/dl (2.5-4.0); Total Protein 6.5 gm/dl (6.4-8.2)
== END 2019-05-16 12:25 | disposition home or self-care (01) | DRG 807 ==
LOC: OPB 01:26 → 4S1 01:31 → 4S2 05-14 07:00
DX: F41.9 Anxiety disorder, unspecified; Z88.0 Allergy status to penicillin; F17.210 Nicotine dependence, cigarettes, uncomplicated; E66.9 Obesity, unspecified; O99.334 Smoking (tobacco) complicating childbirth; O77.0 Labor and delivery complicated by meconium in amniotic fluid; Z37.0 Single live birth; O99.344 Other mental disorders complicating childbirth; Z3A.39 39 weeks gestation of pregnancy; O99.214 Obesity complicating childbirth